=== PATIENT | male | born 1970 | race Caucasian/White ===

== ENCOUNTER 2020-08-11 08:57 | Outpatient (CLI) | payer MEDICARE, MEDICAID, SELFPAY ==
--- NOTE | ~2020-08-11 | MR_ITS ---
EXAMINATION: MR brain/brain stem wo/w con DATE: 08/11/2020 10:58 INDICATION: Brain tumor. TECHNIQUE: Magnetic resonance imaging (MRI) of the brain and brainstem was performed without and with 14 mL MultiHance intravenous contrast. Sequences included sagittal and axial T1-weighted FSE, axial diffusion-weighted FS EPI, axial T2*-weighted GRE, axial T2-weighted FLAIR Propeller, and axial T2-we ighted Propeller. Postcontrast sequences included axial and coronal T1-weighted FSE. Apparent diffusi on coefficient (ADC) maps were created. COMPARISON: None. FINDINGS: There is a small area of chronic encephalomalacia in medial left cerebellum with old blood products. There are changes of posterior craniotomy. There is a tract of increased T2-weighted signal intensity in the right parietal lobe, likely an old ventriculostomy site. There is increased T2-weig hted signal intensity in the katy on the left, which is likely within normal limits for the patient's age. There is no acute ischemic infarct or abnormal mass lesion. The ventricles are normal in size. The orbits are normal. There is mild mucosal thickening in the paranasal sinuses. There is a trace ri ght mastoid effusion. IMPRESSION: 1. Small area of chronic encephalomalacia in medial left cerebellum with old blood products, which ma y be surgical change. Reviewed, dictated and finalized at location B. IMPRESSION: 1. Small area of chronic encephalomalacia in medial left cerebellum with old bl ood products, which may be surgical change.
== END 2020-08-11 08:58 | disposition home or self-care (01) ==
LOC: CHSIMG 09:03
PROVIDERS: PCP Family Medicine; Visit Provider Family Medicine
DX: C71.9 Malignant neoplasm of brain, unspecified (principal)
CPT/HCPCS: 70553; A9577

== ENCOUNTER 2020-09-01 10:39 | Outpatient (CLI) | payer MEDICARE, MEDICAID, SELFPAY ==
--- NOTE | ~2020-09-01 | MR_ITS ---
EXAMINATION: MR cervical spine wo con DATE: 09/01/2020 12:05 INDICATION: Right-sided cervical radiculopathy. TECHNIQUE: Magnetic resonance imaging (MRI) of the cervical spine was performed without intravenous c ontrast. Sequences included sagittal T2-weighted FSE, sagittal STIR FSE, sagittal T1-weighted FSE, ax ial MERGE, and axial T2-weighted FSE. COMPARISON: None FINDINGS: There is 9 degrees levocurvature of cervical spine. There is 2 mm retrolisthesis of C3 on C 4. There are changes of anterior fusion procedure from C4 to C7 with discectomies and interbody devic es. At C4-C5, there is an anterior plate and screws. There is severely decreased disc height at C3-C4 with endplate remodeling. There is increased T2-weighted signal intensity in the spinal cord on the right at C4, consistent with myelomalacia. The following disc levels are specifically discussed: C2-C3: There is a left central extrusion. There is no uncovertebral joint osteoarthritis. There is mi ld bilateral facet joint osteoarthritis. There is no neural foraminal stenosis. There is no central c anal stenosis. C3-C4: The disc is bulging. There is severe right and moderate left uncovertebral joint osteoarthriti s. There is moderate right and mild left facet joint osteoarthritis. There is mild bilateral neural f oraminal stenosis. There is mild central canal stenosis. C4-C5: There is mild left uncovertebral joint hypertrophy. There is mild bilateral facet joint osteoa rthritis. There is no neural foraminal stenosis. There is no central canal stenosis. C5-C6: There is severe left uncovertebral joint hypertrophy. There is moderate right and mild left fa cet joint osteoarthritis. There is mild right and moderate left neural foraminal stenosis. There is n o central canal stenosis. C6-C7: There is moderate right and severe left uncovertebral joint hypertrophy. There is mild bilater al facet joint osteoarthritis. There is mild right and moderate left neural foraminal stenosis. There is no central canal stenosis. C7-T1: The disc does not extend beyond the endplate margin. There is no uncovertebral joint osteoarth ritis. There is severe bilateral facet joint osteoarthritis. There is mild bilateral neural foraminal stenosis. There is no central canal stenosis. IMPRESSION: 1. Severe cervical spondylosis. 2. Anterior fusion procedure from C4 to C7. 3. Myelomalacia at C4. Reviewed, dictated and finalized at location A.
== END 2020-09-01 10:40 | disposition home or self-care (01) ==
LOC: CHSIMG 10:40
PROVIDERS: PCP Family Medicine; Visit Provider Family Medicine
DX: M79.2 Neuralgia and neuritis, unspecified (principal)
CPT/HCPCS: 72141

== ENCOUNTER 2023-05-04 12:57 | Outpatient (CLI) | payer OTHER, SELFPAY ==
--- NOTE | 2023-05-21 15:01 | PFT_ITS ---
This report was moved to the correct visit on 06/18/2023. The original report was signed by Angie Gonzalez on 05/21/23 1521. PFT Procedure Performed PFT Procedure Performed Spirometry with Pre/Post Bronchodilator Plethysmography (Lung Vol) Diffusing Cap (DLCO) Flow Vol Loop PFT Interpretation DOS: 05/04/2023 REQUESTING: Ramez Patel NP REASON FOR TESTING: nicotine dependence PULMONARY FUNCTION TESTS Results are reliable and reproducible. Spirometry: Pre-bronchodilator FEV1 is 4.00 L, 107% predicted, normal. Pre- bronchodilator FVC is 4.95 L, 106% predicted, normal. FEV1 / FVC ratio is 81%, normal. After bronchodilator administration there is a 9% drop in the FEV1 and 11% drop in the FVC. Lung volumes: Total lung capacity is 6.35 L, 91%, normal. Residual volume is 1.40 L, 60%, normal. RV /TLC is 22%, not elevated, normal. Airway resistance 150%. Diffusion: DLCO is 21.6, 91%, normal. DLCO /VA is 3.92, 98%, normal. Flow volume loop: Normal IMPRESSION: This study shows normal spirometry, normal lung volumes, normal diffusion and a normal flow volume loop. The drop in flows after bronchodilator may be a nonspecific finding. This does not preclude use of bronchodilators if clinically indicated. No prior studies for comparison. Angie Gonzalez MD This report may have been done utilizing a voice recognition system. Attempts have been made to correct errors. However, there may be uncorrected grammatical, spelling, and recognition errors present. Report Initialized date/time: Angie Gonzalez MD 05/21/23 / 1501 Electronically signed by: Angie Gonzalez MD 05/21/23 1521 [facility]
== END 2023-05-04 12:58 | disposition home or self-care (01) ==
LOC: CHSCARD 13:00
PROVIDERS: PCP Family Medicine; Visit Provider Registered Nurse
DX: Z12.2 Encounter for screening for malignant neoplasm of respiratory organs (principal); F17.210 Nicotine dependence, cigarettes, uncomplicated
CPT/HCPCS: 94060; 94726; 94729

== ENCOUNTER 2023-05-06 10:05 | Outpatient (CLI) | payer OTHER, SELFPAY ==
--- NOTE | ~2023-05-06 | CT_ITS ---
CT Scan of the Chest without Contrast: Clinical Indication: Lung cancer screening, personal history of nicotine dependence Technique: Contiguous sections were acquired throughout the chest without intravenous contrast. Dose reduction technique was used on this scan by utilizing automated exposure control and iterative recon struction technique. The dose-length product (DLP) was 88.82 mGy-cm. Findings:. Thyroid gland is enlarged, with substernal extension of the left lobe. There is no evidence of any significant mediastinal, hilar or axillary lymphadenopathy. Calcified rig ht paratracheal lymph nodes are present. The mediastinal soft tissues appear normal. There is no evidence of pleural or pericardial effusion. The lungs are clear. No pulmonary nodules or infiltrates are noted. Images through the upper abdomen reveal no abnormalities. Impression: Lung RADS 1: Negative. 12 month follow-up screening CT advised. Reviewed, dictated and finalized at [facility]. [employer] Impression: Lung RADS 1: Negative. 12 month follow-up screening CT advised.
--- NOTE | 2023-05-21 15:00 | P.PCNPFT_ITS ---
PFT Procedure Performed PFT Procedure Performed Spirometry with Pre/Post Bronchodilator Plethysmography (Lung Vol) Diffusing Cap (DLCO) Flow Vol Loop PFT Interpretation DOS: 05/04/2023 REQUESTING: Ramez Patel NP REASON FOR TESTING: nicotine dependence PULMONARY FUNCTION TESTS Results are reliable and reproducible. Spirometry: Pre-bronchodilator FEV1 is 4.00 L, 107% predicted, normal. Pre- bronchodilator FVC is 4.95 L, 106% predicted, normal. FEV1 / FVC ratio is 81%, normal. After bronchodilator administration there is a 9% drop in the FEV1 and 11% drop in the FVC. Lung volumes: Total lung capacity is 6.35 L, 91%, normal. Residual volume is 1.40 L, 60%, normal. RV /TLC is 22%, not elevated, normal. Airway resistance 150%. Diffusion: DLCO is 21.6, 91%, normal. DLCO /VA is 3.92, 98%, normal. Flow volume loop: Normal IMPRESSION: This study shows normal spirometry, normal lung volumes, normal diffusion and a normal flow volume loop. The drop in flows after bronchodilator may be a nonspecific finding. This does not preclude use of bronchodilators if clinically indicated. No prior studies for comparison. Angie Gonzalez MD
== END 2023-05-06 10:06 | disposition home or self-care (01) ==
LOC: CHSIMG 10:08
PROVIDERS: PCP Family Medicine; Visit Provider Registered Nurse
DX: Z12.2 Encounter for screening for malignant neoplasm of respiratory organs (principal); Z87.891 Personal history of nicotine dependence
CPT/HCPCS: 71271

== ENCOUNTER 2023-11-06 10:32 | Outpatient (CLI) | payer OTHER, SELFPAY ==
--- NOTE | ~2023-11-06 | US_ITS ---
EXAMINATION: US thyroid DATE: 11/06/2023 11:00 INDICATION: Thyroid nodule TECHNIQUE: Multiple ultrasound images of the thyroid were obtained. COMPARISON: None. FINDINGS: The right thyroid lobe measures 6.0 x 2.4 x 2.7 cm. The left thyroid lobe measures 6.5 x 3.6 x 3.5 c m. 2.9 cm solid, taller than wide hypervascular and heterogeneous iso to hypoechoic nodule with smoo th margins in the inferior right thyroid lobe (TI-RADS 4, moderately suspicious , FNA if >=1.5 cm, an nual followup is >=1 cm). There is a second 3.3 cm wider than tall solid heterogeneously isoechoic hy poechoic nodule with lobular margins in the inferior left thyroid lobe. (TI-RADS 4, moderately suspic ious , FNA if >=1.5 cm, annual followup is >=1 cm). 1.5 cm wider than tall, mixed cystic and solid no dule with smooth margins and hypoechoic solid component (TI-RADS 3, mildly suspicious , FNA if >=2.5 cm, annual followup is >=1.5 cm). For millimeter BI-RADS 1 cystic nodule in the right thyroid lobe. IMPRESSION: 1. Multinodular goiter. Would recommend ultrasound guided biopsy of the 3.3 cm left-sided and 2.9 cm right-sided TI RADS 4 nodules. Reviewed, dictated and finalized at location A.
== END 2023-11-06 10:33 | disposition home or self-care (01) ==
LOC: CHSIMG 10:38
PROVIDERS: PCP Family Medicine; Visit Provider Registered Nurse
DX: E04.2 Nontoxic multinodular goiter (principal)
CPT/HCPCS: 76536

== ENCOUNTER 2023-11-07 09:53 | Outpatient (CLI) | payer OTHER, SELFPAY ==
--- NOTE | ~2023-11-07 | MR_ITS ---
EXAMINATION: MR brain/brain stem wo/w con DATE: 11/07/2023 10:52 INDICATION: Vertigo TECHNIQUE: Magnetic resonance imaging (MRI) of the brain and brainstem was performed without and with 13 mL Multihance intravenous contrast. Sequences included sagittal and axial T1-weighted SE, axial d iffusion-weighted FS SE, axial T2*-weighted GRE, axial T2-weighted FLAIR, and axial T2-weighted FSE. Postcontrast axial and coronal T1-weighted SE was obtained. Apparent diffusion coefficient (ADC) maps were created. COMPARISON: 08/11/2020 FINDINGS: There are no areas of restricted diffusion to suggest acute infarction. Again seen is a small region of likely postoperative encephalomalacia with susceptibility artifact consistent with presence of old blood products at the medial left cerebellum with more posterior postoperative change of prior occip ital craniotomy. There is additional unchanged linear tract of increased T2 signal and susceptibility artifact in the right parietal lobe underlying a benji hole likely representing an old ventriculostom y tract. Multiple tiny foci of susceptibility artifact in the bilateral cerebellar hemispheres as wel l as more prominent small periventricular focus of susceptibility artifact at the right trigonal marv on which be consistent with sequela of chronic microhemorrhage with distribution suggesting hypertens ion. No other intracranial hemorrhage or abnormal intracranial mass lesion. There are no intraparench ymal signal abnormalities seen on the other pulse sequences. The ventricles are symmetric and normal in size. There are no abnormal extra-axial fluid collections. Flow voids are seen in the cerebral art eries on the T2-weighted sequences consistent with their expected patency. Mucosal thickening, mild a nd bilateral ethmoid sinuses and moderate in the left maxillary sinus. Visualized orbits and soft tis sues are unremarkable. There are no areas of abnormal enhancement on the post contrast images. IMPRESSION: 1. No acute intracranial process. 2. Stable appearance of a small area of chronic encephalomalacia in the medial left cerebellum with o verlying occipital craniotomy suggesting this along with a likely ventricular drainage catheter tract in the right parietal lobe are likely postoperative in etiology. Correlate with surgical history. 3. Several tiny foci of susceptibility artifact in the bilateral cerebral hemispheres and slightly la rger focus in the right peritrigonal region most suggestive of foci of microhemorrhage related to hyp ertension. Differential would include less likely cerebral amyloid angiopathy or change of prior surg nik. Reviewed, dictated and finalized at location A. IMPRESSION: 1. No acute intracranial process. 2. Stable appearance of a small area of chronic encephalomalacia in the medial left cerebellum with overlying occipital craniotomy suggesting this along with a likely ventricular drainage catheter tract in the right parietal lobe are lik clarence postoperative in etiology. Correlate with surgical history. 3. Several tiny foci of susceptibility artifact in the bilateral cerebral hemis pheres and slightly larger focus in the right peritrigonal region most suggesti ve of foci of microhemorrhage related to hypertension. Differential would inclu de less likely cerebral amyloid angiopathy or change of prior surgery.
== END 2023-11-07 09:54 | disposition home or self-care (01) ==
LOC: CHSIMG 09:54
PROVIDERS: PCP Family Medicine; Visit Provider Registered Nurse
DX: R42 Dizziness and giddiness (principal); G93.89 Other specified disorders of brain
CPT/HCPCS: 70553; A9577